=== PATIENT | male | born 1950 | race Caucasian/White ===

== ENCOUNTER 2016-11-24 14:17 | Emergency (ER) | payer MEDICAID ==
[2016-11-24 15:34] LABS: ABSOLUTE BASOPHILS # (AUTO) 0.1 10^3/uL (0.0-0.2); ABSOLUTE EOSINOPHILS # (AUTO) 0.3 10^3/uL (0.0-0.6); ABSOLUTE LYMPHOCYTES (AUTO) 1.4 10^3/uL (0.5-4.7); ABSOLUTE MONOCYTES (AUTO) 0.7 10^3/uL (0.1-1.4); ABSOLUTE NEUT (AUTO) 5.6 10^3/uL (1.7-8.2); BASOPHILS % (AUTO) 0.8 % (0-2); EOSINOPHILS % (AUTO) 3.8 % (0-6); HEMATOCRIT 40.9 % (37.9-51.0); HEMOGLOBIN 14.3 g/dL (13.5-17.0); LYMPHOCYTES % (AUTO) 17.2 % (13-45); MEAN CORPUSCULAR HEMOGLOBIN 32.4 pg (27.0-33.4); MEAN CORPUSCULAR HGB CONC 34.9 g/dL (32.0-36.0); MEAN CORPUSCULAR VOLUME 93 fl (80-97); MONOCYTES % (AUTO) 8.1 % (3-13); RED BLOOD COUNT 4.41 10^6/uL (4.35-5.55); RED CELL DISTRIBUTION WIDTH 13.8 % (11.5-14.0); SEGMENTED NEUTROPHILS % (AUTO) 70.1 % (42-78)
[2016-11-24] MEDS ORDERED: IPRATROPIUM/ALBUTEROL 0.5-2.5 MG/3 ML AMPUL NEB ONE (15:41)
--- NOTE | 2016-11-24 15:41 | ER Document Report ---
ED General - General Mode of Arrival: Ambulatory Information source: Patient TRAVEL OUTSIDE OF THE [place] IN LAST 30 DAYS: No - HPI Onset: Just prior to arrival Onset/Duration: Gradual Quality of pain: Dull Severity: Mild Pain Level: 1 Associated symptoms: denies: Chills, Fever, Shortness of breath Exacerbated by: Denies Relieved by: Denies Similar symptoms previously: Yes Recently seen / treated by doctor: No <TAMMY MCCARTNEY - Last Filed: 11/24/16 19:15> <BRI RODRIGUEZ - Last Filed: 11/25/16 10:24> - General Chief Complaint: Depression Stated Complaint: PSYCH EVAL Time Seen by Provider: 11/24/16 14:53 Notes: This is a 66-year-old man with a history of hypertension and COPD who presents to the emergency room with depression and wanting to "leave it all". Patient states he has been "in a dark place" since his fiance 1 month ago of liver failure. The patient is followed by Tano Wood as well as [facility] (Dr. Ochoa). Patient denies any overdose. He denies hearing any voices. Past medical history: Hypertension, COPD, anxiety, depression. Primary CARE physician: Dr. Tano Wood Psychiatrist Dr. Ochoa at [facility] Allergies: Penicillin (TAMMY MCCARTNEY) - Related Data Allergies/Adverse Reactions: Penicillins Allergy (Verified 11/24/16 14:28) Past Medical History - General Information source: Patient - Social History Smoking Status: Current Every Day Smoker Cigarette use (# per day): Yes - 1 pack per day Chew tobacco use (# tins/day): Yes Smoking Education Provided: Yes - Approximately 2 minutes Frequency of alcohol use: None Drug Abuse: None Lives with: Alone Family History: Reviewed & Not Pertinent Patient has suicidal ideation: Yes Patient has homicidal ideation: No - Past Medical History Cardiac Medical History: Reports: Hx Hypertension Pulmonary Medical History: Reports: Hx COPD Renal/ Medical History: Denies: Hx Peritoneal Dialysis Musculoskeltal Medical History: Reports Hx Arthritis Past Surgical History: Reports: Hx Orthopedic Surgery - Immunizations Hx Diphtheria, Pertussis, Tetanus Vaccination: Yes <TAMMY MCCARTNEY - Last Filed: 11/24/16 19:15> Review of Systems <TAMMY MCCARTNEY - Last Filed: 11/24/16 19:15> <BRI RODRIGUEZ - Last Filed: 11/25/16 10:24> - Review of Systems Notes: Review of systems: Constitutional: Denies fever, chills. EENT: Denies ear pain, sinus tenderness, throat pain, throat swelling. Cardiovascular: Denies chest pain, palpitations, dyspnea or edema. Respiratory: Positive for wheezing Abdomen: Denies abdominal pain, nausea, vomiting, diarrhea. Denies BRBPR or melena. Genitourinary: Denies dysuria, pyuria, hematuria, flank pain. Musculoskeletal: denies joint pain or swelling, denies back pain. Neurologic: Denies headache, photophobia, neck stiffness, weakness. Denies loss of bowel or bladder function. Denies saddle anesthesia. Skin: Denies rash, lesions. (TAMMY MCCARTNEY) Physical Exam <TAMMY MCCARTNEY - Last Filed: 11/24/16 19:15> <BRI RODRIGUEZ - Last Filed: 11/25/16 10:24> - Vital signs Vitals: Temp Pulse Resp BP Pulse Ox 97.9 F 115 H 14 143/90 H 95 11/24/16 14:28 11/24/16 14:28 11/24/16 14:28 11/24/16 14:28 11/24/16 14:28 Notes: Physical exam: GENERAL: 66-year-old man, alert and oriented 3, appears quite depressed. HEAD: Atraumatic, normocephalic. EYES: Pupils equal round and reactive to light, extraocular movements intact, sclera anicteric, conjunctiva are normal. ENT: TMs normal, nares patent, oropharynx clear without exudates. Moist mucous membranes. NECK: Normal range of motion, supple without ovious mass or JVD. LUNGS: Decreased breath sounds bilaterally, wheezing bilaterally. HEART: Regular rate and rhythm without murmurs, rubs or gallops. ABDOMEN: Soft, normoactive bowel sounds. No tenderness to palpation. No guarding, no rebound. No masses appreciated. EXTREMITIES: Normal range of motion, no pitting or edema. No clubbing or cyanosis. NEUROLOGICAL: Cranial nerves II through XII grossly intact. Normal speech, moving all extremities. PSYCH: Blunted affect with a depressed mood. SKIN: Warm, Dry, normal turgor, no rashes or lesions noted. (TAMMY MCCARTNEY) Course - Laboratory Result Diagrams: 11/24/16 15:22 11/24/16 15:22 - EKG Interpretation by Me Rate: Normal Rhythm: NSR - EKG shows normal sinus rhythm with a ventricular rate of 97, left axis deviation, no acute ST-T wave changes. <TAMMY MCCARTNEY - Last Filed: 11/24/16 19:15> - Laboratory Result Diagrams: 11/24/16 15:22 11/24/16 15:22 <BRI RODRIGUEZ - Last Filed: 11/25/16 10:24> - Re-evaluation Re-evalutation: 11/24/16 17:10 The patient does appear quite depressed and he does have a plan to kill himself. I have made him an involuntary commitment. He is already been seen by psychiatry. The plan is to give him Cymbalta 60 mg daily for 4 days in an attempt to wean him off. Additionally, we will start Depakote 500 twice daily, BuSpar 5 mg in the morning, BuSpar 10 mg in the evening. 11/24/16 17:11 On repeat assessment, his lungs are clear. His breathing is very comfortable. He is hemodynamically stable. I reviewed his labs which are normal. Patient is medically acute cleared for psychiatric transfer or discharge. (TAMMY MCCARTNEY ) 11/25/16 10:23 Patient has been evaluated, he is noted to have depressive symptoms due to the fianc's passing away, we will change his medications and give him close follow- up with [facility] After performing a Medical Screening Examination, I estimate there is LOW risk for any life threatening mental health issues. At this time the patient looks extremely well and has not attempted severe self harm. I have reevaluated this patient multiple times and no significant life threatening changes are noted. The patient and I have discussed the diagnosis and risks, and we agree with discharging home with close follow-up with the understanding that symptoms and presentations can change. We also discussed returning to the Emergency Department immediately if new or worsening symptoms occur. We have discussed the symptoms which are most concerning (hallucinations, thoughts or actions of self harm or harm to others) that necessitate immediate return. (BRI RODRIGUEZ) - Vital Signs Vital signs: Temp Pulse Resp BP Pulse Ox 98.6 F 84 18 125/75 96 11/25/16 07:18 11/25/16 07:18 11/25/16 07:18 11/25/16 07:18 11/25/16 07:18 - Laboratory Laboratory results interpreted by me: 11/24/16 15:22 Sodium 135.9 L AST 15 L Salicylates < 1.0 L Acetaminophen < 10 L Discharge <TAMMY MCCARTNEY - Last Filed: 11/24/16 19:15> <BRI RODRIGUEZ - Last Filed: 11/25/16 10:24> - Discharge Clinical Impression: Major depression, COPD exacerbation, Bereavement Condition: Stable Disposition: HOME, SELF-CARE Additional Instructions: DEPRESSION: Your evaluation reveals that you have mental depression. While symptoms may be vague, they often include disturbance of sleep, fatigue, loss of appetite , and general loss of interest in life. While depression may be a side effect of drugs, or a reaction to a major change in your life, many cases have no known cause. If depression is acute, and related to a major loss in your life, you can expect it to clear completely with time. If you have been depressed a long time , are prone to repeated bouts of depression or low mood, or have been thinking of suicide, get help. Depression can be treated with anti-depressant medication and counselling. Long-term depression will often take a few weeks to clear, even with appropriate medication. Follow-up care is important. SUICIDAL IDEATION: Suicidal ideation is a common medical term for thoughts about suicide, which may be as detailed as a formulated plan, without the suicidal act itself. Although most people who undergo suicidal ideation do not commit suicide, some go on to make suicide attempts. The range of suicidal ideation varies greatly from fleeting to detailed planning, role playing, and unsuccessful attempts. While thoughts about suicide are common, most people do not carry out serious actions to commit suicide. Based upon your evaluation and discussion with you, we do not believe you are currently at risk to act upon your thoughts of suicide. You have agreed to return to the Emergency Department, at any time , if you feel inclined to act upon your suicidal thoughts. FOLLOW-UP CARE: Please follow-up with your outpatient provider, [facility], upon discharge for further therapeutic services. Is recommended you receive bereavement counseling. If you experience worsening or a significant change in your symptoms, notify the physician immediately or return to the Emergency Department at any time for re-evaluation. Prescriptions: Buspirone HCl [Buspar 10 mg Tablet] 10 mg PO QHS #7 tablet Buspirone HCl [Buspar 5 mg Tablet] 1 tab PO QAM #7 tab Divalproex Sodium [Depakote] 500 mg PO BID #14 tablet.dr Referrals: [facility] [Outside] - 11/25/16 TANO GONZALES MD [ACTIVE STAFF] - Follow up as needed
[2016-11-24] MEDS ORDERED: NICOTINE 14 MG/24 HR PATCH.TD24 TD ONE (15:42)
[2016-11-24 15:55] LABS: ALANINE AMINOTRANSFERASE 25 U/L (21-72); ALBUMIN 4.2 g/dL (3.5-5.0); ALKALINE PHOSPHATASE 69 U/L (38-126); ANION GAP 9 (5-19); ASPARTATE AMINO TRANSFERASE 15 U/L (17-59); BILIRUBIN,DIRECT 0.4 mg/dL (0.0-0.4); BILIRUBIN,TOTAL 0.6 mg/dL (0.2-1.3); BLOOD UREA NITROGEN 16 mg/dL (7-20); CALCIUM 9.7 mg/dL (8.4-10.2); CARBON DIOXIDE 28 mmol/L (22-30); CHLORIDE 99 mmol/L (98-107); CREATININE RESULT 0.75 mg/dL (0.52-1.25); GLUCOSE 97 mg/dL (75-110); POTASSIUM 4.4 mmol/L (3.6-5.0); SODIUM 135.9 mmol/L (137-145); TOTAL PROTEIN 6.9 g/dL (6.3-8.2)
[2016-11-24 15:58] LABS: ALCOHOL < 10 mg/dL (NONE DETECTED)
[2016-11-24 16:09] LABS: APPEARANCE,URINE CLEAR; BILIRUBIN,URINE NEGATIVE (NEGATIVE); GLUCOSE, URINE NEGATIVE (NEGATIVE); KETONES,URINE NEGATIVE (NEGATIVE); LEUKOCYTE ESTERASE,URINE NEGATIVE (NEGATIVE); NITRITE,URINE NEGATIVE (NEGATIVE); PROTEIN,URINE NEGATIVE (NEGATIVE); URINE SPECIFIC GRAVITY 1.009; UROBILINOGEN,URINE NEGATIVE mg/dL (<2.0)
--- NOTE | 2016-11-24 16:09 | RADIOLOGY REPORT (SQ) ---
EXAM DESCRIPTION: CHEST SINGLE VIEW COMPLETED DATE/TIME: 11/24/2016 4:00 pm REASON FOR STUDY: sob COMPARISON: 03/05/2013 EXAM PARAMETERS: NUMBER OF VIEWS: One view. TECHNIQUE: Single frontal radiographic view of the chest acquired. RADIATION DOSE: NA LIMITATIONS: None. FINDINGS: LUNGS AND PLEURA: No opacities, masses or pneumothorax. No pleural effusion. MEDIASTINUM AND HILAR STRUCTURES: No masses. Contour normal. HEART AND VASCULAR STRUCTURES: Heart normal in size. Normal vasculature. BONES: No acute findings. HARDWARE: None in the chest. OTHER: No other significant finding. IMPRESSION: NO ACUTE RADIOGRAPHIC FINDING IN THE CHEST. NO SIGNIFICANT CHANGE FROM PRIOR STUDY. TECHNICAL DOCUMENTATION: JOB ID: [id number]
[2016-11-24] MEDS ORDERED: CLONAZEPAM 1 MG TABLET PO ONE (16:12)
[2016-11-24 16:23] LABS: URINE BARBITURATES SCREEN NEGATIVE; URINE METHADONE SCREEN NEGATIVE; URINE OPIATES LOW NEGATIVE; URINE PHENCYCLIDINE SCREEN NEGATIVE
--- NOTE | 2016-11-24 16:34 | ER Document Report ---
ED Psych Disorder / Suicide - General Mode of Arrival: Ambulatory Information source: [facility] TRAVEL OUTSIDE OF THE [place] IN LAST 30 DAYS: No - HPI Patient complains to provider of: Suicidal ideation, Suicidal plan - intent, means (OD on pills) Onset: Other Onset was: Gradual Suicide Risk Factors: Bipolar, Depressed, Lack of social support Normal mood: No Associated symptoms: Depressed, Tearful Similar symptoms previously: Yes Recently seen / treated by doctor: Yes - [facility] <CARLO GONZALEZ - Last Filed: 11/24/16 16:27> <JOSE FERREIRA - Last Filed: 11/25/16 09:58> - General Chief Complaint: Depression Stated Complaint: PSYCH EVAL Time Seen by Provider: 11/24/16 14:53 - HPI Notes: Patient is a 66-year-old male who presents via POV due to suicidal ideations with intent plan and means. Patient states he is in a very "dark place." He states his depression has increased, precipitated by the of his fiance 1 month ago. Patient is tearful with flat affect. Patient states he is followed by Power Cheng at [facility] and takes his medications as prescribed. Patient reports he is prescribed Adderall, Ambien, Klonopin, Cymbalta as well as an inhaler and HCTZ. Patient reports he does consume beer possibly 2-3 per day but states he is not dependent on alcohol. Patient reports he lives alone and has very few social supports. Patient reports he is struggling with the of his fiance and cannot seem to move past it. Patient reports no prior suicide attempts. Patient reports no prior inpatient hospitalizations. Patient denies homicidal ideations at this time. Patient states he has not researched how he would kill himself; however, states he planned to overdose on his pills. Patient states, "I am having a real hard time seeing anything to live for." Patient reports he called his provider today to request to be seen, due to the holiday they were closed in the message instructed him to call [facility]. Patient states he followed instructions, spoke with a nurse at [facility] and was instructed to present to the nearest ER. Patient reports he has never been through anything like this before and does not know what to expect. Did attempt to answer patient's questions to the best of my ability and made patient aware he will be placed on an involuntary commitment and held for further disposition and evaluation. Patient is alert and oriented. Mood is depressed with flat and tearful affect. Patient endorses suicidal ideations, with plan, means, and intent. Patient denies homicidal ideations. Patient denies A/VH; delusions not noted. Thought processes were organized. Conversational speech was WNL for rate, tone, and prosody. Intellectual abilities were estimated within average range. Attention and focus were fair. Insight, judgment, impulse control were fair, a.e.b. seeking assistance for his symptoms. Major depressive disorder, per history Patient reports a long history of intermittent depression Patient is recommended for involuntary commitment for further evaluation and disposition, likely in the morning. Patient is considered a danger to himself as he reports a suicide plan with means. Patient reports no social support individuals to contact for assistance. I consulted with Dr. Etienne in regards to the care and management of this patient. EDMD is in agreement with disposition and recommendations. (CARLO GONZALEZ) Clinician conducted checking with patient 11/25/2016: Patient disclosed he is feeling "a little better." Patient was able to discuss his grief with his fiance passing away 1 month ago. When discussing patient's suicidal thoughts, patient stated "I thought about it one time as a passing thought." Patient identified that the passing thought was "taking a bunch of pills." Patient denies current thoughts of suicide and stated when he is discharged he will go straight to [facility] to set up further aftercare. Patient is alert and orientated to person place time and circumstance. Mood is euthymic with restricted affect. Patient endorses passive suicidal ideation identified as "passing thoughts." Patient denies homicidal ideation. Patient denies auditory visual hallucinations. Delusions were absent and behaviors congruent with intact reality based presentation (i.e. organized, linear, rational thinking). conversational speech was within normal rate tone and prosody. Intellectual abilities appear to be within the average range. Attention and concentration were good. Insight, judgment, impulse control were good i.e. patient voluntarily came for assistance knowing his symptoms were increasing. Major depressive disorder, per history provided by patient Bereavement Impression\\plan: Patient is recommended for rescind of IVC and is considered psychiatrically clear for discharge. Patient no longer meets IVC criteria per [place] GS 122C. Patient denies current suicidal and homicidal ideation. Delusions were absent behaviors congruent with intact reality based presentation (i.e. organized, linear, rational thinking). Patient identified aftercare plan of reporting to [facility] immediately upon discharge. Patient is recommended for grief counseling. Dr. Etienne was consulted on the care management of this patient; attending physician is agreement with recommendations and disposition. (JOSE FERREIRA) - Related Data Allergies/Adverse Reactions: Penicillins Allergy (Verified 11/24/16 14:28) Past Medical History - General Information source: Patient - Social History Smoking Status: Current Every Day Smoker Cigarette use (# per day): Yes - 1 pack per day Chew tobacco use (# tins/day): Yes Frequency of alcohol use: None Drug Abuse: None Lives with: Alone Family History: Reviewed & Not Pertinent Patient has suicidal ideation: Yes Patient has homicidal ideation: No - Past Medical History Cardiac Medical History: Reports: Hx Hypertension Pulmonary Medical History: Reports: Hx COPD Renal/ Medical History: Denies: Hx Peritoneal Dialysis Musculoskeltal Medical History: Reports Hx Arthritis Past Surgical History: Reports: Hx Orthopedic Surgery - Immunizations Hx Diphtheria, Pertussis, Tetanus Vaccination: Yes <CARLO GONZALEZ - Last Filed: 11/24/16 16:27> - Vital signs Vitals: Temp Pulse Resp BP Pulse Ox 97.9 F 115 H 14 143/90 H 95 11/24/16 14:28 11/24/16 14:28 11/24/16 14:28 11/24/16 14:28 11/24/16 14:28 Course - Laboratory Result Diagrams: 11/24/16 15:22 11/24/16 15:22 <CARLO GONZALEZ - Last Filed: 11/24/16 16:27> - Laboratory Result Diagrams: 11/24/16 15:22 11/24/16 15:22 <JOSE FERREIRA - Last Filed: 11/25/16 09:58> - Vital Signs Vital signs: Temp Pulse Resp BP Pulse Ox 98.6 F 84 18 125/75 96 11/25/16 07:18 11/25/16 07:18 11/25/16 07:18 11/25/16 07:18 11/25/16 07:18 - Laboratory Laboratory results interpreted by me: 11/24/16 15:22 Sodium 135.9 L AST 15 L Salicylates < 1.0 L Acetaminophen < 10 L Discharge <CARLO GONZALEZ - Last Filed: 11/24/16 16:27> <JOSE FERREIRA - Last Filed: 11/25/16 09:58> - Discharge Clinical Impression: Major depression, COPD exacerbation, Bereavement Condition: Stable Disposition: HOME, SELF-CARE Additional Instructions: DEPRESSION: Your evaluation reveals that you have mental depression. While symptoms may be vague, they often include disturbance of sleep, fatigue, loss of appetite , and general loss of interest in life. While depression may be a side effect of drugs, or a reaction to a major change in your life, many cases have no known cause. If depression is acute, and related to a major loss in your life, you can expect it to clear completely with time. If you have been depressed a long time , are prone to repeated bouts of depression or low mood, or have been thinking of suicide, get help. Depression can be treated with anti-depressant medication and counselling. Long-term depression will often take a few weeks to clear, even with appropriate medication. Follow-up care is important. SUICIDAL IDEATION: Suicidal ideation is a common medical term for thoughts about suicide, which may be as detailed as a formulated plan, without the suicidal act itself. Although most people who undergo suicidal ideation do not commit suicide, some go on to make suicide attempts. The range of suicidal ideation varies greatly from fleeting to detailed planning, role playing, and unsuccessful attempts. While thoughts about suicide are common, most people do not carry out serious actions to commit suicide. Based upon your evaluation and discussion with you, we do not believe you are currently at risk to act upon your thoughts of suicide. You have agreed to return to the Emergency Department, at any time , if you feel inclined to act upon your suicidal thoughts. FOLLOW-UP CARE: Please follow-up with your outpatient provider, [facility], upon discharge for further therapeutic services. Is recommended you receive bereavement counseling. If you experience worsening or a significant change in your symptoms, notify the physician immediately or return to the Emergency Department at any time for re-evaluation. Referrals: RODRIGUEZ GONZALES MD [ACTIVE STAFF] - Follow up as needed [facility] [Outside] - 11/25/16
[2016-11-24] MEDS: DIVALPROEX SODIUM 500 MG TAB.SR.24H PO SCH (17:56)
[2016-11-24] MEDS: OXYCODONE HCL IR 5 MG TABLET PO PRN (17:57)
--- NOTE | 2016-11-24 18:25 | EKG REPORT ---
SEVERITY:- OTHERWISE NORMAL ECG - SINUS RHYTHM LOW VOLTAGE IN FRONTAL LEADS : Confirmed by: Rubén Woods MD 24-Nov-2016 18:25:05
[2016-11-24] MEDS ORDERED: BUSPIRONE HCL 10 MG TABLET PO SCH (22:00)
[2016-11-24] MEDS ORDERED: GUAIFENESIN/D-METHORPHAN (200-20 MG) SYRUP 10 ML PO SCH (22:45)
[2016-11-25] MEDS: OXYCODONE HCL IR 5 MG TABLET PO PRN (06:40)
[2016-11-25] MEDS ORDERED: BUSPIRONE HCL 10 MG TABLET PO SCH (08:00)
[2016-11-25] MEDS ORDERED: LOSARTAN POTASSIUM 50 MG TABLET PO SCH (08:00)
[2016-11-25] MEDS ORDERED: HYDROCHLOROTHIAZIDE 12.5 MG CAPSULE PO SCH (08:00)
--- NOTE | 2016-11-25 09:31 | ER Document Report ---
Doctor's Note Notes: 11/25/16 09:30 As the rounding physician for our psychiatric patients, I have reviewed the chart, vitals, lab work. Patient has been examined and noted to be resting comfortably . I am awaiting mental health in put but expect discharge.
[2016-11-25] MEDS: DIVALPROEX SODIUM 500 MG TAB.SR.24H PO SCH (09:58)
[2016-11-25] MEDS ORDERED: DULOXETINE HCL 30 MG CAPSULE.DR PO SCH (10:00)
[2016-11-25 10:33] VITALS: BP 140/91
== END 2016-11-25 10:33 | disposition home or self-care (01) ==
LOC: ER 14:17
DX: F32.9 Major depressive disorder, single episode, unspecified (principal); R45.851 Suicidal ideations; J44.1 Chronic obstructive pulmonary disease with (acute) exacerbation; Z63.4 Disappearance and death of family member; I10 Essential (primary) hypertension; F17.210 Nicotine dependence, cigarettes, uncomplicated; Z71.6 Tobacco abuse counseling; Z88.0 Allergy status to penicillin
CPT/HCPCS: 93005; 94640; 99284; 36415; 80307 ×4; 85025; 80053; 81001; 71010; 93010; J3490 ×10; J7620

== ENCOUNTER 2017-04-14 15:15 | Emergency (ER) | payer MEDICARE, MEDICAID ==
[2017-04-14] MEDS ORDERED: IPRATROPIUM BROMIDE 0.02% NEB 0.5 MG/2.5 ML AMPUL NEB ONE (16:09)
[2017-04-14] MEDS ORDERED: ALBUTEROL SULFATE 0.083% NEB 2.5 MG/3 ML AMPUL NEB ONE (16:09)
--- NOTE | 2017-04-14 16:09 | ER Document Report ---
ED Medical Screen (RME) - General Mode of Arrival: Ambulatory Information source: Patient TRAVEL OUTSIDE OF THE [place] IN LAST 30 DAYS: No - HPI Patient complains to provider of: Shortness of breath Onset: Other - 4-5 days ago Associated Symptoms: Other - see notes above - Related Data Smoking: Cigarettes <WILLY HOPKINS - Last Filed: 04/14/17 16:12> <NGOC ROLLE - Last Filed: 04/16/17 10:55> - General Chief Complaint: Shortness Of Breath Stated Complaint: BREATHING PROBLEMS Time Seen by Provider: 04/14/17 15:43 Notes: 67-year-old male with history of COPD (on Advair and Ventolin) presents to the ED complaining of progressively worsening shortness of breath and a nonproductive cough for the past 4-5 days. Patient denies fever or chest pain. Patient reports that he is a smoker but stopped 4-5 days ago when symptoms began. (WILLY HOPKINS) - Related Data Allergies/Adverse Reactions: Penicillins Allergy (Verified 01/21/17 06:55) Hives, Swelling Tetanus Vaccines and Toxoid Allergy (Verified 01/21/17 06:55) Hives Past Medical History - General Information source: Patient - Social History Chew tobacco use (# tins/day): No Frequency of alcohol use: Rare Drug Abuse: None Family history: Reviewed & Not Pertinent - Past Medical History Cardiac Medical History: Reports: Hx Hypertension Denies: Hx Coronary Artery Disease, Hx Heart Attack Pulmonary Medical History: Reports: Hx Bronchitis, Hx COPD Denies: Hx Asthma, Hx Pneumonia Neurological Medical History: Denies: Hx Cerebrovascular Accident, Hx Seizures Renal/ Medical History: Denies: Hx Peritoneal Dialysis Musculoskeltal Medical History: Reports Hx Arthritis Past Surgical History: Reports: Hx Orthopedic Surgery - neck, right hip, right knee - Immunizations Hx Diphtheria, Pertussis, Tetanus Vaccination: Yes <WILLY HOPKINS - Last Filed: 04/14/17 16:12> Review of Systems - Review of Systems Constitutional: No symptoms reported. denies: Fever EENT: No symptoms reported Cardiovascular: No symptoms reported. denies: Chest pain Respiratory: See HPI, Cough, Hurts to breathe, Short of breath Gastrointestinal: No symptoms reported Genitourinary: No symptoms reported Male Genitourinary: No symptoms reported Musculoskeletal: No symptoms reported Skin: No symptoms reported Hematologic/Lymphatic: No symptoms reported Neurological/Psychological: No symptoms reported -: Yes All other systems reviewed and negative <WILLY HOPKINS - Last Filed: 04/14/17 16:12> Physical Exam - General General appearance: Alert In distress: None - Respiratory Respiratory status: No respiratory distress Breath sounds: Wheezing - moderate wheezing bilaterally, Other - tight with diminished breath sounds. No: Normal - Cardiovascular Rhythm: Regular, Tachycardia Heart sounds: Normal auscultation - Abdominal Inspection: Normal <WILLY HOPKINS - Last Filed: 04/14/17 16:12> - Vital signs Vitals: Temp Pulse Resp BP Pulse Ox 98.3 F 107 H 32 H 151/75 H 96 04/14/17 15:19 04/14/17 15:19 04/14/17 15:19 04/14/17 15:19 04/14/17 15:19 Course - Laboratory Result Diagrams: 04/14/17 16:00 04/14/17 16:00 <NGOC ROLLE - Last Filed: 04/16/17 10:55> - Vital Signs Vital signs: Temp Pulse Resp BP Pulse Ox 98.3 F 107 H 14 117/89 H 98 04/14/17 15:19 04/14/17 15:19 04/14/17 17:01 04/14/17 17:01 04/14/17 17:01 - Laboratory Laboratory results interpreted by me: 04/14/17 04/14/17 16:00 16:00 RBC 4.09 L Hgb 12.7 L Hct 37.0 L Monocytes % 13.9 H Sodium 135.2 L Doctor's Discharge <WILLY HOPKINS - Last Filed: 04/14/17 16:12> <NGOC ROLLE - Last Filed: 04/16/17 10:55> - Discharge Clinical Impression: COPD exacerbation Condition: Stable Disposition: HOME, SELF-CARE Instructions: Chronic Obstructive Lung Disease ([facility]) Prescriptions: Hydrocodone Bit/Homatropine [Hycodan 5-1.5 mg Tablet] 1 tab PO Q4HP PRN #24 tablet PRN Reason: Prednisone [Deltasone 20 mg Tablet] 3 tab PO DAILY 5 Days tablet Referrals: RODRIGUEZ RICHARDSON MD [Primary Care Provider] - Follow up tomorrow Scribe Documentation - Scribe Written by Scribe:: Wilson Stephens, 04/14/2017 1615 acting as scribe for :: Long <WILLY HOPKINS - Last Filed: 04/14/17 16:12>
[2017-04-14] MEDS ORDERED: PREDNISONE 20 MG TABLET PO ONE (16:10)
[2017-04-14 16:17] LABS: ABSOLUTE EOSINOPHILS # (AUTO) 0.1 10^3/uL (0.0-0.6); ABSOLUTE LYMPHOCYTES (AUTO) 1.1 10^3/uL (0.5-4.7); ABSOLUTE MONOCYTES (AUTO) 0.9 10^3/uL (0.1-1.4); ABSOLUTE NEUT (AUTO) 4.4 10^3/uL (1.7-8.2); BASOPHILS % (AUTO) 0.6 % (0-2); EOSINOPHILS % (AUTO) 1.7 % (0-6); HEMOGLOBIN 12.7 g/dL (13.5-17.0); LYMPHOCYTES % (AUTO) 16.5 % (13-45); MEAN CORPUSCULAR HEMOGLOBIN 31.1 pg (27.0-33.4); MEAN CORPUSCULAR HGB CONC 34.3 g/dL (32.0-36.0); MEAN CORPUSCULAR VOLUME 91 fl (80-97); MONOCYTES % (AUTO) 13.9 % (3-13); PLATELET COUNT 261 10^3/uL (150-450); RED BLOOD COUNT 4.09 10^6/uL (4.35-5.55); RED CELL DISTRIBUTION WIDTH 13.4 % (11.5-14.0); SEGMENTED NEUTROPHILS % (AUTO) 67.3 % (42-78); TOTAL CELLS COUNTED % (AUTO) 100 %; WHITE BLOOD COUNT 6.5 10^3/uL (4.0-10.5)
--- NOTE | 2017-04-14 16:30 | ER Document Report ---
ED General - General Chief Complaint: Shortness Of Breath Stated Complaint: BREATHING PROBLEMS Time Seen by Provider: 04/14/17 15:43 Mode of Arrival: Ambulatory Information source: Patient Notes: 67-year-old male history of COPD emphysema presents with complaints of shortness breath of 3-4 day duration. Patient denies any productivity to the cough notes his chest is burning in his ribs or burning from coughing so hard. Patient denies any fevers or chills TRAVEL OUTSIDE OF THE [place] IN LAST 30 DAYS: No - HPI Onset: Other Onset/Duration: Persistent Quality of pain: Burning Severity: Mild Pain Level: 1 Associated symptoms: Nonproductive cough, Shortness of breath Exacerbated by: Denies Relieved by: Denies Similar symptoms previously: Yes Recently seen / treated by doctor: Yes - Related Data Allergies/Adverse Reactions: Penicillins Allergy (Verified 01/21/17 06:55) Hives, Swelling Tetanus Vaccines and Toxoid Allergy (Verified 01/21/17 06:55) Hives Past Medical History - General Information source: Patient - Social History Smoking Status: Current Every Day Smoker Cigarette use (# per day): Yes Chew tobacco use (# tins/day): No Smoking Education Provided: No Frequency of alcohol use: Rare Drug Abuse: None Family History: Reviewed & Not Pertinent Patient has suicidal ideation: No Patient has homicidal ideation: No - Past Medical History Cardiac Medical History: Reports: Hx Hypertension Denies: Hx Coronary Artery Disease, Hx Heart Attack Pulmonary Medical History: Reports: Hx Bronchitis, Hx COPD Denies: Hx Asthma, Hx Pneumonia Neurological Medical History: Denies: Hx Cerebrovascular Accident, Hx Seizures Renal/ Medical History: Denies: Hx Peritoneal Dialysis Musculoskeltal Medical History: Reports Hx Arthritis Past Surgical History: Reports: Hx Orthopedic Surgery - neck, right hip, right knee - Immunizations Hx Diphtheria, Pertussis, Tetanus Vaccination: Yes Review of Systems - Review of Systems Notes: REVIEW OF SYSTEMS: CONSTITUTIONAL : Denies fever, chills, or sweats. Denies recent illness. EENT: Denies eye, ear, throat, or mouth pain or symptoms. Denies nasal or sinus congestion or discharge. Denies throat, tongue, or mouth swelling or difficulty swallowing. CARDIOVASCULAR: Denies chest pain. Denies palpitations or racing or irregular heart beat. Denies ankle edema. RESPIRATORY: Admits to shortness of breath difficulty breathing GASTROINTESTINAL: Denies abdominal pain or distention. Denies nausea, vomiting , or diarrhea. Denies blood in vomitus, stools, or per rectum. Denies black, tarry stools. Denies constipation. GENITOURINARY: Denies difficulty urinating, painful urination, burning, frequency, blood in urine, or discharge. MUSCULOSKELETAL: Denies back or neck pain or stiffness. Denies joint pain or swelling. SKIN: Denies rash, lesions or sores. HEMATOLOGIC : Denies easy bruising or bleeding. LYMPHATIC: Denies swollen, enlarged glands. NEUROLOGICAL: Denies confusion or altered mental status. Denies passing out or loss of consciousness. Denies dizziness or lightheadedness. Denies headache. Denies weakness or paralysis or loss of use of either side. Denies problems with gait or speech. Denies sensory loss, numbness, or tingling. Denies seizures. PSYCHIATRIC: Denies anxiety or stress. Denies depression, suicidal ideation, or homicidal ideation. ALL OTHER SYSTEMS REVIEWED AND NEGATIVE. Dictation was performed using [employer] voice recognition software PHYSICAL EXAMINATION: GENERAL: Well-appearing, well-nourished and in no acute distress. HEAD: Atraumatic, normocephalic. EYES: Pupils equal round and reactive to light, extraocular movements intact, sclera anicteric, conjunctiva are normal. ENT: Nares patent, oropharynx clear without exudates. Moist mucous membranes. NECK: Normal range of motion, supple without lymphadenopathy LUNGS: Coarse expiratory respiratory wheezing all throughout initially tachypneic but resolved after breathing treatments HEART: Initially tachycardic but resolved ABDOMEN: Soft, nontender, nondistended abdomen. No guarding, no rebound. No masses appreciated. Musculoskeletal: Normal range of motion, no pitting or edema. No cyanosis. NEUROLOGICAL: Cranial nerves grossly intact. Normal speech, normal gait. Normal sensory, motor exams PSYCH: Normal mood, normal affect. SKIN: Warm, Dry, normal turgor, no rashes or lesions noted. Physical Exam - Vital signs Vitals: Temp Pulse Resp BP Pulse Ox 98.3 F 107 H 32 H 151/75 H 96 04/14/17 15:19 04/14/17 15:19 04/14/17 15:19 04/14/17 15:19 04/14/17 15:19 Course - Re-evaluation Re-evalutation: 04/14/17 18:43 Lab work imaging was not significantly elevated for any life-threatening issues , patient's presentation is consistent with COPD exacerbation, patient was given breathing treatments and notes significant improvement in the fast breathing. He will be given steroids for home. Otherwise he is stable for discharge I had a very long discussion with this patient and is happy with this plan After performing a Medical Screening Examination, I estimate there is LOW risk for ACUTE CORONARY SYNDROME, PULMONARY EMBOLI, RESPIRATORY FAILURE, SEPSIS OR MENINGITIS, thus I consider the discharge disposition reasonable. I have reevaluated this patient multiple times and no significant life threatening changes are noted. The patient and I have discussed the diagnosis and risks, and we agree with discharging home with close follow-up. We also discussed returning to the Emergency Department immediately if new or worsening symptoms occur. We have discussed the symptoms which are most concerning (e.g., changing or worsening pain, trouble swallowing or breathing, neck stiffness, fever) that necessitate immediate return. - Vital Signs Vital signs: Temp Pulse Resp BP Pulse Ox 98.3 F 107 H 14 117/89 H 98 04/14/17 15:19 04/14/17 15:19 04/14/17 17:01 04/14/17 17:01 04/14/17 17:01 - Laboratory Result Diagrams: 04/14/17 16:00 04/14/17 16:00 Laboratory results interpreted by me: 04/14/17 04/14/17 16:00 16:00 RBC 4.09 L Hgb 12.7 L Hct 37.0 L Monocytes % 13.9 H Sodium 135.2 L - Diagnostic Test Radiology reviewed: Image reviewed, Reports reviewed Discharge - Discharge Clinical Impression: COPD exacerbation Condition: Stable Disposition: HOME, SELF-CARE Instructions: Chronic Obstructive Lung Disease ([facility]) Prescriptions: Hydrocodone Bit/Homatropine [Hycodan 5-1.5 mg Tablet] 1 tab PO Q4HP PRN #24 tablet PRN Reason: Prednisone [Deltasone 20 mg Tablet] 3 tab PO DAILY 5 Days tablet Referrals: RODRIGUEZ RICHARDSON MD [Primary Care Provider] - Follow up tomorrow
[2017-04-14 16:35] LABS: INTERNATIONAL RATION (INR) 0.89; PROTHROMBIN TIME 12.7 SEC (11.4-15.4)
[2017-04-14 16:37] LABS: ALANINE AMINOTRANSFERASE 65 U/L (21-72); ALBUMIN 4.2 g/dL (3.5-5.0); ALKALINE PHOSPHATASE 56 U/L (38-126); ANION GAP 9 (5-19); ASPARTATE AMINO TRANSFERASE 41 U/L (17-59); BILIRUBIN,DIRECT 0.2 mg/dL (0.0-0.4); BILIRUBIN,TOTAL 0.4 mg/dL (0.2-1.3); BLOOD UREA NITROGEN 19 mg/dL (7-20); CALCIUM 9.9 mg/dL (8.4-10.2); CARBON DIOXIDE 27 mmol/L (22-30); CHLORIDE 99 mmol/L (98-107); GLUCOSE 103 mg/dL (75-110); MAGNESIUM 1.9 mg/dL (1.6-2.3); POTASSIUM 4.3 mmol/L (3.6-5.0); SODIUM 135.2 mmol/L (137-145); TOTAL PROTEIN 6.9 g/dL (6.3-8.2)
--- NOTE | 2017-04-14 16:38 | RADIOLOGY REPORT (SQ) ---
EXAM DESCRIPTION: CHEST PA/LAT COMPLETED DATE/TIME: 04/14/2017 4:26 pm REASON FOR STUDY: sob COMPARISON: 03/05/2013. EXAM PARAMETERS: NUMBER OF VIEWS: two views TECHNIQUE: Digital Frontal and Lateral radiographic views of the chest acquired. RADIATION DOSE: NA LIMITATIONS: none FINDINGS: LUNGS AND PLEURA: No opacities, masses or pneumothorax. No pleural effusion. MEDIASTINUM AND HILAR STRUCTURES: No masses or contour abnormalities. HEART AND VASCULAR STRUCTURES: Heart normal size. No evidence for failure. BONES: No acute findings. HARDWARE: Hardware in the cervical spine. OTHER: No other significant finding. IMPRESSION: NO SIGNIFICANT RADIOGRAPHIC FINDING IN THE CHEST. TECHNICAL DOCUMENTATION: JOB ID: [id number] [employer]- All Rights Reserved
[2017-04-14 17:53] VITALS: BP 117/89
[2017-04-14] MEDS ORDERED: HYDROCODONE BIT/HOMATROPINE 5-1.5 MG TABLET PO ONE (17:59)
--- NOTE | 2017-04-15 08:48 | EKG REPORT ---
SEVERITY:- NORMAL ECG - SINUS RHYTHM : Confirmed by: Vanessa Neves MD 15-Apr-2017 08:47:39
== END 2017-04-14 17:01 | disposition home or self-care (01) ==
LOC: ER 15:15
DX: J43.9 Emphysema, unspecified (principal); R06.02 Shortness of breath; R05 Cough; F17.210 Nicotine dependence, cigarettes, uncomplicated; I10 Essential (primary) hypertension; Z88.0 Allergy status to penicillin; Z88.7 Allergy status to serum and vaccine
CPT/HCPCS: 93005; 99285; 36415; 83735; 85025; 85610; 80053; 84484; 83880; 71046; 93010; A9270 ×3; J3490; J7512